=== PATIENT | female | born 1970 | race Caucasian/White ===

== ENCOUNTER 2017-09-14 23:12 | Emergency (ER) | payer OTHER ==
[~2017-09-14] VITALS: Ht 165.1 cm; Wt 61.2 kg
[~2017-09-14 23:12] MED LIST: ALBUTEROL SULF8.5 GM INH; AZITHROMYCIN250 MG ORAL; IBUPROFEN600 MG ORAL; NKM
[2017-09-14 23:25] VITALS: BP 119/81
[2017-09-15] MEDS ORDERED: Lidocaine 1% Plain 30 ml INJ ONE
[2017-09-15] MEDS ORDERED: Acetaminophen 500mg (ES) tab ORAL ONE
[2017-09-15] MEDS ORDERED: IBUPROFEN600 MG ORAL (00:25)
[2017-09-15] MEDS ORDERED: KEFLEX500 MG ORAL (00:25)
--- NOTE | 2017-09-15 01:49 | Emergency Room Report ---
History of Present Illness General Chief Complaint: Skin Rash/Abscess Source: Patient Present Illness HPI Patient is a 47-year-old female who presented after increased pain to her right great toe. The patient had injury to her toe several days ago. She noted that the pain to her toe had increased after her toe stepped on. Allergies: Coded Allergies: IODINE (Unverified Allergy, Unknown, 12/22/14) Patient History Past Medical History: see triage record Reviewed Nursing Documentation: PMH: Agreed, PSxH: Agreed Review of Systems All Other Systems: negative except mentioned in HPI Physical Exam Vital Signs Date Time Temp Pulse Resp B/P (MAP) Pulse Ox O2 Delivery O2 Flow Rate FiO2 09/14/17 23:17 97.9 73 16 119/81 100 Room Air General Appearance: well appearing, no apparent distress, alert, GCS 15 Head: normocephalic, atraumatic ENT: hearing grossly normal, normal voice Neck: full range of motion, supple Respiratory: no respiratory distress, speaking full sentences Cardiovascular #1: normal inspection Gastrointestinal: normal inspection, soft Musculoskeletal: normal inspection, no calf tenderness Neurologic: normal inspection, alert, oriented x3, normal gait Psychiatric: mood/affect normal Skin: no rash, other - right great toenail partial avulsion Procedures Additional Procedure Procedure Narrative Right great toenail was prepped with Betadine. The digital block was performed with 4 mL of lidocaine 1% plain. Toenail was removed with blunt dissection. The patient tolerated well. EBL LESS than 5 mL. Medical Decision Making Diagnostic Impression: Primary Impression: Avulsed toenail ER Course Patient presented for toe pain. Differential diagnosis included was not limited to ingrown toenail, tinea unguium among others. The patient was consented for toenail removal. Patient appears to have a partially avulsed toenail which is somewhat infected with fungus. Patient was advised wound care The patient is advised to follow up with primary care doctor in 1-2 days for wound recheck. Patient is advised to return if any worsening condition or if any changes in status that are concerning. Last Vital Signs Date Time Temp Pulse Resp B/P (MAP) Pulse Ox O2 Delivery O2 Flow Rate FiO2 09/14/17 23:25 97.9 16 119/81 100 Room Air 09/14/17 23:17 73 Status: improved Disposition: HOME, SELF-CARE Condition: Stable Scripts Cephalexin* (KEFLEX*) 500 Mg Capsule 500 MG ORAL Q6H, #20 CAP 0 Refills Prov: Boby Pate 09/15/17 Ibuprofen* (MOTRIN*) 600 Mg Tablet 600 MG ORAL Q8H Y for For Pain, #30 TAB 0 Refills Prov: Boby Pate 09/15/17 Referrals: [facility],REFERRING (PCP) Patient Instructions: Nail Avulsion Boby Pate Sep 15, 2017 01:49
== END 2017-09-15 00:35 | disposition home or self-care (01) ==
LOC: MERGE 23:50 → EMR 23:50
DX: S91.201A Unspecified open wound of right great toe with damage to nail, initial encounter (principal); X58.XXXA Exposure to other specified factors, initial encounter; Y92.89 Other specified places as the place of occurrence of the external cause
CPT/HCPCS: 11730; 99284; J2001; Z7502

== ENCOUNTER 2018-04-12 13:35 | Emergency (ER) | payer OTHER ==
[~2018-04-12] VITALS: Ht 165.1 cm; Wt 60.3 kg
[~2018-04-12 13:35] MED LIST changes: +KEFLEX500 MG ORAL
[2018-04-12 13:49] VITALS: BP 106/73
[2018-04-12] MEDS ORDERED: CEPHALEXIN500 MG ORAL (14:05)
--- NOTE | 2018-04-12 14:08 | Emergency Room Report ---
History of Present Illness General Chief Complaint: Skin Rash/Abscess Source: Patient Present Illness HPI 48-year-old female patient presents ER complaining of skin redness and swelling on her calf since this morning. Denies recent injury or trauma. Denies blood by. Reports concern for DVT. Denies history of DVT or PE, denies history of cancer drug use or long periods of immobilization. Reports is not taking any blood thinners or estrogen for hormone medications. Denies other acute symptoms at this time. Denies fever, chest pain, shortness of breath. Allergies: Coded Allergies: IODINE (Unverified Allergy, Unknown, 11/09/17) Patient History Past Medical History: see triage record Last Menstrual Period: 04/11/18 Now: No Reviewed Nursing Documentation: PMH: Agreed; PSxH: Agreed Nursing Documentation-PMH Past Medical History: No Stated History Review of Systems All Other Systems: negative except mentioned in HPI Physical Exam Vital Signs Date Time Temp Pulse Resp B/P (MAP) Pulse Ox O2 Delivery O2 Flow Rate FiO2 04/12/18 13:42 98.3 80 18 106/73 95 98.2 Sp02 EP Interpretation: reviewed, normal General Appearance: well appearing, no apparent distress, alert, GCS 15, non- toxic Head: normocephalic, atraumatic Eyes: bilateral eye normal inspection, bilateral eye PERRL ENT: hearing grossly normal, normal pharynx, no angioedema, normal voice, uvula midline, moist mucus membranes Neck: full range of motion Respiratory: lungs clear, normal breath sounds, no rhonchi, no respiratory distress, no accessory muscle use, no wheezing, speaking full sentences Cardiovascular #1: regular rate, rhythm, no edema Musculoskeletal: back normal, digits/nails normal, gait/station normal, normal range of motion, non-tender, no calf tenderness, Jaron's Sign negative Neurologic: alert, oriented x3, responsive, motor strength/tone normal, sensory intact Psychiatric: mood/affect normal Skin: other - right lower calf: 2cm area of erythema and edema, warmth to touch , mild TTP, no red streaking, no central clearing, no vesicles, no crepitus, no open wound or drainage Lymphatic: no adenopathy Medical Decision Making PA Attestation Dr. Kelly is my supervising Physician whom patient management has been discussed with. Diagnostic Impression: Primary Impression: Cellulitis ER Course Pt. presents to the ED c/o cellulitis.. Ddx considered but are not limited to rash, cellulitis, abscess, atopic dermatitis, angioedema., allergic reaction, DVT. Vital signs: are WNL, pt. is afebrile ER COURSE: physical exam consistent with cellulitis. Negative Homans sign, no calf pain, able to ambulate without difficulty, low suspicion for DVT, patient denies shortness of breath, taking blood thinners, history of cancer, taking estrogen medication, recent immobilization or travel, does not require evaluation for DVT at this time. Will treat patient for cellulitis. Patient seen and evaluated by Dr. Kelly, agrees with treatment and plan. Apply cool compresses to the area. Take Tylenol for pain. follow-up PCP in 2-3 days, ER precautions given. DISCHARGE: -Rx provided for Keflex At this time pt. is stable for d/c to home. Patient resting comfortably in no acute distress, nontoxic appearing. Will provide printed patient care instructions, and any necessary prescriptions. Patient instructed to complete current course of antibiotics. Care plan and follow up instructions have been discussed with the patient prior to discharge. Patient instructed to follow-up with primary care provider in 3 - 5 days and discuss further referral to medical center manager and vascular physician. Patient questions asked and answered. ER precautions given. Patient instructed to return to ER immediately for any new or worsening of symptoms including but not limited to increasing SOB, persistent fever, intractable vomiting, calf pain. - Please note that this Emergency Department Report was dictated using [employer] technology software, occasionally this can lead to erroneous entry secondary to interpretation by the dictation equipment. Last Vital Signs Date Time Temp Pulse Resp B/P (MAP) Pulse Ox O2 Delivery O2 Flow Rate FiO2 04/12/18 13:49 98.2 80 18 106/73 95 98.2 Disposition: HOME, SELF-CARE Condition: Stable Scripts Cephalexin* (KEFLEX*) 500 Mg Capsule 500 MG ORAL EVERY 12 HOURS, #14 CAP 0 Refills Prov: Praveen Norton 04/12/18 Patient Instructions: Cellulitis, [id number] Additional Instructions: Followup with primary care provider in 3 -5 days. Take medications as directed. Apply cool compresses to the area. Take Tylenol for pain. Patient questions asked and answered. ER precautions given, patient instructed to return to ER immediately for any new or worsening of symptoms including but not limited to intractable vomiting, chest pain, shortness of breath, worsening spreading of cellulitis, red streaking. Praveen Norton Apr 12, 2018 14:08
[2018-04-12 14:09] VITALS: BP 106/73
== END 2018-04-12 14:10 | disposition home or self-care (01) ==
LOC: EMR 14:07
DX: L03.115 Cellulitis of right lower limb (principal)
CPT/HCPCS: 99283